=== PATIENT | male | born 1990 | race Caucasian/White ===

== ENCOUNTER → 2022-04-05 15:23 | Outpatient (CLI) | payer OTHER, SELFPAY ==
--- NOTE | 2022-04-05 15:28 | DI.RAD.S_ITS ---
PROCEDURE: XR TIBIA FIBULA LT 2V INDICATIONS: Left leg injury TECHNIQUE: 2 views of the tibia and fibula were acquired. COMPARISON: None. FINDINGS: Bones: No acute appearing fractures or dislocations. There is a remote avulsion fracture seen involving the distal aspect the fibula. No suspicious bony lesions. Soft tissues: No suspicious soft tissue calcifications or masses. IMPRESSION: Negative for acute fracture. Remote fracture fragment seen distal to the fibular tip. Dictated by: Zion Person M.D. on 04/05/2022 at 15:07 Approved by: Zion Person M.D. on 04/05/2022 at 15:07
== END ==
PROVIDERS: PCP Physician Assistant; Referring Provider Registered Nurse; Visit Provider Registered Nurse
DX: S89.92XA Unspecified injury of left lower leg, initial encounter (principal); S82.832S Other fracture of upper and lower end of left fibula, sequela; X58.XXXA Exposure to other specified factors, initial encounter
CPT/HCPCS: 73590

== ENCOUNTER → 2023-05-13 09:15 | Outpatient (CLI) | payer OTHER, SELFPAY ==
[2023-05-13 19:13] LABS: Alanine Aminotransferase 45 IU/L (<50); Albumin 4.6 g/dL (3.5-5.0); Albumin Globulin Ratio 1.3 (1.0-2.8); Alkaline Phosphatase 67 U/L (38-126); Aspartate Aminotransferase 57 IU/L (17-59); BUN Creatinine Ratio 21.9 (6-22); Bilirubin Total 0.7 mg/dL (0.2-1.3); Blood Urea Nitrogen 30 mg/dL (9-20); Calcium 10.3 mg/dL (8.4-10.2); Carbon Dioxide 28 mmol/L (22-32); Chloride 105 mmol/L (98-107); Cholesterol 283 mg/dL (140-199); Estimated Glomerular Filt Rate > 60 mL/min (>60); Globulin 3.5 g/dL (1.7-4.1); Glucose 86 mg/dL (70-100); HDL Cholesterol 85 mg/dL (40-60); HEMOLYSIS < 15 (0-50); LDL Cholesterol Calculated 181 mg/dL (<100); Potassium 4.7 mmol/L (3.4-5.1); Sodium 141 mmol/L (137-145); Total Protein 8.1 g/dL (6.3-8.2); Triglycerides 84 mg/dL (35-150)
[2023-05-13 19:24] LABS: Add Manual Diff / Slide Review NO; Basophils Absolute Auto 0 /uL (0-100); Eosinophils Absolute Auto 100 /uL (0-450); Eosinophils Percent Auto 2.8 % (2-4); Hematocrit 43.7 % (41-53); Lymphocytes Absolute Auto 1800 /uL (1100-4500); Lymphocytes Percent Auto 43.8 % (25-40); Mean Corpuscular HGB Conc 34.4 % (30-36); Mean Corpuscular Hemoglobin 30.8 PG (26-34); Mean Corpuscular Volume 89.6 fL (80-100); Monocytes Absolute Auto 300 /uL (0-900); Monocytes Percent Auto 6.8 % (3-14); Neutrophils Absolute Auto 1900 /uL (1500-7000); Neutrophils Percent Auto 45.6 % (50-75); Platelet Count 236 X10^3/uL (150-400); Red Blood Cell Count 4.88 X10^6/uL (4.5-5.9); Red Cell Distribution Width 13.4 % (11.6-14.8); White Blood Cell Count 4.2 X10^3/uL (4.5-11.0)
[2023-05-22 17:53] LABS: Percent Free Testosterone 2.59 % (1.50-4.20); Testosterone Free 10.47 ng/dL (5.00-21.00); Testosterone Total 404.2 ng/dL (264.0-916.0)
== END ==
PROVIDERS: PCP Family Medicine; Visit Provider Family Medicine
DX: Z13.220 Encounter for screening for lipoid disorders (principal); Z13.1 Encounter for screening for diabetes mellitus; Z13.6 Encounter for screening for cardiovascular disorders
CPT/HCPCS: 80053; 80061; 84402; 84403; 85025

== ENCOUNTER 2024-01-21 10:43 | Emergency (ER) | payer OTHER, SELFPAY ==
[2024-01-21] VITALS (13 sets, daily range): BP systolic 119–140; BP diastolic 59–79; PULSE 60–71; RESP 12–25; TEMP 36.8; O2SAT 94–100; BMI 23.7
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
[2024-01-21] MEDS: MORPHINE 4 MG/ML INJ IV ×2 (13:29→13:59)
[2024-01-21 13:38] LABS: Add Manual Diff / Slide Review NO; Basophils Absolute Auto 100 /uL (0-100); Basophils Percent Auto 0.7 % (0-2); Eosinophils Absolute Auto 300 /uL (0-450); Eosinophils Percent Auto 3.7 % (2-4); Hematocrit 41.1 % (41-53); Hemoglobin 13.9 g/dL (13.5-17.5); Lymphocytes Absolute Auto 2400 /uL (1100-4500); Lymphocytes Percent Auto 34.3 % (25-40); Mean Corpuscular HGB Conc 33.8 % (30-36); Mean Corpuscular Hemoglobin 30.2 PG (26-34); Mean Corpuscular Volume 89.2 fL (80-100); Monocytes Absolute Auto 600 /uL (0-900); Monocytes Percent Auto 8.8 % (3-14); Neutrophils Absolute Auto 3600 /uL (1500-7000); Neutrophils Percent Auto 52.5 % (50-75); Platelet Count 325 X10^3/uL (150-400); Red Blood Cell Count 4.61 X10^6/uL (4.5-5.9); Red Cell Distribution Width 13.5 % (11.6-14.8); White Blood Cell Count 6.9 X10^3/uL (4.5-11.0)
[2024-01-21] MEDS: DOXYCYCLINE 100 MG in SODIUM CHLORIDE 0.9% 100 ML IV (13:47)
[2024-01-21 14:00] LABS: Alanine Aminotransferase 40 IU/L (<50); Albumin 4.2 g/dL (3.5-5.0); Albumin Globulin Ratio 1.3 (1.0-2.8); Alkaline Phosphatase 75 U/L (38-126); Aspartate Aminotransferase 35 IU/L (17-59); BUN Creatinine Ratio 17.5 (6-22); Bilirubin Total 0.3 mg/dL (0.2-1.3); Blood Urea Nitrogen 22 mg/dL (9-20); Calcium 9.3 mg/dL (8.4-10.2); Carbon Dioxide 32 mmol/L (22-32); Chloride 101 mmol/L (98-107); Estimated Glomerular Filt Rate > 60 mL/min (>60); Globulin 3.3 g/dL (1.7-4.1); Glucose 96 mg/dL (70-100); HEMOLYSIS < 15 (0-50); Lactate (Lactic Acid) 1.1 mmol/L (0.7-2.1); Potassium 4.6 mmol/L (3.4-5.1); Sodium 139 mmol/L (137-145); Total Protein 7.5 g/dL (6.3-8.2)
[2024-01-21 14:15] LABS: Procalcitonin 0.066 ng/mL (<0.5)
--- NOTE | 2024-01-21 15:15 | PC.NURSE ---
Non adherant dressings and coban wrap applied to bilateral knees, legs.
[2024-01-21] MEDS: DOXYCYCLINE HYCLATE 100 MG TABLET PO (15:21)
== END 2024-01-21 15:44 | disposition home or self-care (01) ==
PROVIDERS: Emergency Provider Emergency Medicine; PCP Family Medicine
DX: L03.116 Cellulitis of left lower limb (principal); S80.211A Abrasion, right knee, initial encounter; S90.412A Abrasion, left great toe, initial encounter; S81.012D Laceration without foreign body, left knee, subsequent encounter; R79.89 Other specified abnormal findings of blood chemistry
CPT/HCPCS: 36415; 73560; 73660; 80053; 81003; 83605; 84145; 85025; 87040; 87070; 87205; 96365; 96375; 99284; J2270

== ENCOUNTER → 2024-01-21 18:44 | Outpatient (CLI) | payer OTHER, SELFPAY ==
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
== END ==
PROVIDERS: PCP Family Medicine; Referring Provider Orthopaedic Surgery Orthopaedic Trauma; Visit Provider Orthopaedic Surgery Orthopaedic Trauma
DX: S82.141A Displaced bicondylar fracture of right tibia, initial encounter for closed fracture (principal); S83.511A Sprain of anterior cruciate ligament of right knee, initial encounter; S83.241A Other tear of medial meniscus, current injury, right knee, initial encounter; S83.411A Sprain of medial collateral ligament of right knee, initial encounter; S83.421A Sprain of lateral collateral ligament of right knee, initial encounter; M25.461 Effusion, right knee; X58.XXXA Exposure to other specified factors, initial encounter
CPT/HCPCS: 73721